=== PATIENT | female | born 1980 | race Caucasian/White ===

== ENCOUNTER 2017-03-30 23:25 | Inpatient (IN) | payer BC ==
[2017-03-31] MEDS ORDERED: TERBUTALINE 1 MG/ML VIAL SQ PRN
[2017-03-31] MEDS ORDERED: LACTATED RINGERS 1,000 ML IV SCH
[2017-03-31] MEDS ORDERED: CARBOPROST TROMETHAMINE 250 MCG/ML 1 ML AMP IM PRN
[2017-03-31] MEDS ORDERED: METHYLERGONOVINE 0.2 MG/ML 1 ML AMP IM PRN
[2017-03-31] MEDS ORDERED: LIDOCAINE 1% (PF) 10 MG/ML (30 ML SDV) SQ PRN
[2017-03-31] MEDS ORDERED: OXYTOCIN 10 UNIT/ML 1 ML VIAL IM PRN
[2017-03-31] MEDS ORDERED: BUTORPHANOL 1 MG/ML 1 ML VIAL IV PRN (00:46)
[2017-03-31 00:51] LABS: Basophils % (A) 0 %; CH 30.3; CHCM 34.2; Eosinophils # (A) 0.2 k/uL (0-0.7); Eosinophils % (A) 1 %; HCT 37.3 % (34.0-46.0); HDW 2.25; HGB 12.7 gm/dL (11.4-16.0); Luc # (Auto) 0.28; Luc % (Auto) 2; Lymphocytes # (A) 2.7 k/uL (1.0-4.8); Lymphocytes % (A) 16 %; MCH 30.2 pg (25.0-35.0); MCHC 34.1 g/dL (31.0-37.0); MCV 88.8 fL (80.0-100.0); Mean Platelet Volume 8.3; Monocytes # (A) 0.9 k/uL (0-1.0); Monocytes % (A) 5 %; Neutrophils # (A) 12.4 k/uL (1.3-7.7); Neutrophils % (A) 75 %; RDW 13.2 % (11.5-15.5); WBC 16.5 k/uL (3.8-10.6); WBC (Perox) 16.35
[2017-03-31] MEDS ORDERED: ONDANSETRON 4 MG/2 ML VIAL IVP STA (02:42)
--- NOTE | 2017-03-31 03:43 | P.HPOB ---
History of Present Illness H&P Date: 03/31/17 Chief Complaint: Spontaneous rupture of membranes This is a 36-year-old female 2 para 1 with an estimated date of confinement of 04/05/2017, estimated gestational age of 39-2/7 weeks who presented with spontaneous rupture membranes at approximately 10:15 PM on 2016. She states the fluid was clear. She began feeling contractions shortly thereafter. care has been with Dr. Do and has been essentially uncomplicated however she has been following with maternal- medicine due to history of delivery with her first child. She did receive progesterone injections weekly and was followed with repetitive ultrasounds. labs: Integrated screen-negative Syphilis antibody-negative Blood type-O+ Antibody screen-negative Rubella-immune Hepatitis B surface antigen-negative Random glucose-69 Hemoglobin-13.1 GC/chlamydia-negative One hour Glucola-normal Group B streptococcus-negative Obstetrical history: . History of 1 vaginal delivery at 33 weeks with labor. Infant weight was 4 lbs. 8 oz. Gynecologic history: History of low-grade with history of LEEP procedure in 2011. 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 Review of Systems Constitutional: Denies chills, Denies fever Ears, nose, mouth and throat: Denies headache, Denies sore throat Cardiovascular: Denies chest pain, Denies shortness of breath Gastrointestinal: Reports abdominal pain (Irregular contractions) Genitourinary: Reports pelvic pain, Reports Musculoskeletal: Denies myalgias Neurological: Denies numbness, Denies weakness Psychiatric: Denies anxiety, Denies depression Past Medical History Past Medical History: Asthma, GERD/Reflux History of Any Multi-Drug Resistant Organisms: None Reported Past Surgical History: Adenoidectomy, Tonsillectomy Additional Past Surgical History / Comment(s): Leep procedure Past Anesthesia/Blood Transfusion Reactions: No Reported Reaction Past Psychological History: No Psychological Hx Reported Smoking Status: Never smoker Past Alcohol Use History: None Reported Past Drug Use History: None Reported - Past Family History Mother Family Medical History: No Reported History Medications and Allergies Home Medications Medication Instructions Recorded Confirmed Type Docusate [Colace] 100 mg PO DAILY 03/30/17 03/30/17 History Famotidine [Pepcid] 20 mg PO HS 03/30/17 03/30/17 History Coi-Cilq-Iupwr Acid 1 cap PO DAILY 03/30/17 03/30/17 History [-U Capsule (formulary)] Allergies Allergy/AdvReac Type Severity Reaction Status Date / Time No Known Allergies Allergy Verified 03/30/17 23:45 Exam Osteopathic Statement: *. No significant issues noted on an osteopathic structural exam other than those noted in the History and Physical/Consult. - Vital Signs Vital signs: Vital Signs Temp Pulse Resp BP Pulse Ox 03/31/17 00:33 96.9 F L 71 18 129/75 100 Intake and Output 03/30/17 03/30/17 03/31/17 14:59 22:59 06:59 Other: Weight 86.183 kg Patient Weight 03/31/17 06:59 Weight 86.183 kg HEENT: Within normal limits Heart: Regular rate and rhythm Lungs: Clear to auscultation bilaterally Abdomen: Amnisure: Positive, grossly ruptured clear fluid Cervix: On admission is 3 cm/90-100%/-2 heart tones: Reactive Contractions: Every 3-5 minutes Extremities: Negative Homans Results Result Diagrams: 03/31/17 00:35 Abnormal Lab Results - Last 24 Hours (Table) 03/31/17 Range/Units 00:35 WBC 16.5 H (3.8-10.6) k/uL Neutrophils # 12.4 H (1.3-7.7) k/uL Assessment and Plan (1) 39 weeks gestation of Status: Acute (2) Spontaneous rupture of membranes Status: Acute Plan: Admission for active labor. Expectant management.
[2017-03-31] MEDS ORDERED: diphenhydrAMINE 25 MG CAP PO PRN (05:19)
[2017-03-31] MEDS ORDERED: diphenhydrAMINE 50 MG CAP PO PRN (05:19)
[2017-03-31] MEDS ORDERED: HYDROCORTISONE 2.5% RECTAL CREAM 30 GM TUBE RECTAL PRN (05:19)
[2017-03-31] MEDS ORDERED: Acetaminophen-Codeine 300-30mg TAB PO PRN ×2 (05:19)
[2017-03-31] MEDS ORDERED: BENZOCAINE SPRAY 57GM TOPICAL PRN (05:19)
[2017-03-31] MEDS ORDERED: LANOLIN CREAM 5 GM TUBE TOPICAL PRN (05:19)
[2017-03-31] MEDS ORDERED: ZOLPIDEM 5 MG TAB PO PRN (05:19)
[2017-03-31] MEDS ORDERED: OXYTOCIN 20 UNITS/1000 ML NS 1,000 ML IV SCH ×2 (05:19)
[2017-03-31] MEDS ORDERED: WITCH HAZEL 1 EACH MED..PAD TOPICAL PRN (05:19)
[2017-03-31] MEDS ORDERED: diphenhydrAMINE 50 MG/ML 1 ML VIAL IVP PRN ×2 (05:19)
[2017-03-31] MEDS ORDERED: SIMETHICONE 80 MG CHEWABLE PO PRN (05:19)
--- NOTE | 2017-03-31 05:23 | P.PROBDLV ---
Vaginal Delivery Note - . Vaginal Delivery Note: The patient progressed to complete dilation after attaining is labor. She did not take anything for pain. Once reaching complete dilation, she began pushing. 's head came to a crown. With one further push, the 's head delivered across the perineum and a left occiput anterior position followed by the anterior shoulder and a nuchal left hand. With one further push , the remainder the easily delivered and was placed on mother's abdomen. Nose and mouth were bulb suctioned. Cord was clamped and cut and infant was taken to warmer for evaluation. A viable male is noted with scores of 8 at 1 minute and 9 at 5 minutes and infant weight of 7 lbs. 6 oz. Placenta delivered shortly thereafter, intact, with a three-vessel cord. Uterus contracted well after oxytocin was given and uterine massage was carried out. Inspection of the perineum revealed a left labial/periurethral laceration. The area was anesthetized with 1% lidocaine and then sutured with 3 -0 Vicryl suture in a running locked fashion. There was a small right periurethral abrasion that was noted to be hemostatic and therefore not sutured. There was also noted to be of small perineal abrasion that was not bleeding. Estimated blood loss is approximately 150 mL. Both mother and infant are in stable condition.
[2017-03-31] MEDS: IBUPROFEN 600 MG TAB PO PRN ×2 (05:43→15:35)
[2017-03-31] MEDS: SENNOSIDES-DOCUSATE SODIUM 1 EACH TAB PO SCH ×2 (10:40→20:00)
[2017-03-31] MEDS: ACETAMINOPHEN TAB 325 MG TAB PO PRN ×2 (10:41→20:00)
[2017-03-31] MEDS: FAMOTIDINE 20 MG TAB PO SCH (21:32)
[2017-03-31 23:53] VITALS: TEMP 98.3
[2017-04-01] MEDS: ACETAMINOPHEN TAB 325 MG TAB PO PRN ×2 (05:03→10:14)
[2017-04-01 05:39] LABS: Basophils # (A) 0.1 k/uL (0-0.2); Basophils % (A) 0 %; CH 30.4; CHCM 33.9; Eosinophils # (A) 0.3 k/uL (0-0.7); Eosinophils % (A) 1 %; HDW 2.22; HGB 11.5 gm/dL (11.4-16.0); Luc # (Auto) 0.34; Luc % (Auto) 2; Lymphocytes # (A) 3.4 k/uL (1.0-4.8); Lymphocytes % (A) 19 %; MCH 30.4 pg (25.0-35.0); MCHC 33.7 g/dL (31.0-37.0); MCV 90.1 fL (80.0-100.0); Mean Platelet Volume 8.2; Monocytes # (A) 0.9 k/uL (0-1.0); Monocytes % (A) 5 %; Neutrophils # (A) 12.7 k/uL (1.3-7.7); Neutrophils % (A) 72 %; RBC 3.77 m/uL (3.80-5.40); RDW 13.4 % (11.5-15.5); WBC 17.7 k/uL (3.8-10.6); WBC (Perox) 18.51
--- NOTE | 2017-04-01 07:22 | P.DS ---
Providers Date of admission: 03/30/17 23:37 Expected date of discharge: 04/01/17 Attending physician: Nicole Do Primary care physician: Nicole Do - Discharge Diagnosis(es) (1) Normal vaginal delivery Current Visit: Yes Status: Acute Hospital Course: Pt presented at term with spontaneous rupture of membranes. She underwent a normal vaginal delivery and had an uncomplicated post course. She denies N/V, F/C, CP, SOB, calf pain. She will be discharged home PPD #1 in stable condition to follow up with me in 6 weeks. Plan - Discharge Summary New Discharge Prescriptions: No Action Nxt-Kzul-Huhla Acid [-U Capsule (formulary)] 1 cap PO DAILY Famotidine [Pepcid] 20 mg PO HS Docusate [Colace] 100 mg PO DAILY Discharge Medication List Docusate [Colace] 100 mg PO DAILY 03/30/17 [History] Famotidine [Pepcid] 20 mg PO HS 03/30/17 [History] Spy-Ukoc-Ndwbw Acid [-U Capsule (formulary)] 1 cap PO DAILY 04/10 [History]
[2017-04-01 08:15] VITALS: BP 126/68; PULSE 79; RESP 14
[2017-04-01] MEDS: SENNOSIDES-DOCUSATE SODIUM 1 EACH TAB PO SCH (09:12)
[2017-04-01] MEDS: FAMOTIDINE 20 MG TAB PO SCH (10:15)
== END 2017-04-01 10:15 | disposition home or self-care (01) | DRG 775 ==
LOC: FBPOP 23:25 → 4FBP 23:37
PROVIDERS: ADMIT Obstetrics & Gynecology; ATTEND Obstetrics & Gynecology
PROC: 10E0XZZ Delivery of Products of Conception, External Approach (ICD-10-PCS; principal; 2017-03-31)
PROC: 0HQ9XZZ Repair Perineum Skin, External Approach (ICD-10-PCS; 2017-03-31)
DX: O99.52 Diseases of the respiratory system complicating childbirth (principal); J45.909 Unspecified asthma, uncomplicated; Z37.0 Single live birth; O99.62 Diseases of the digestive system complicating childbirth; K21.9 Gastro-esophageal reflux disease without esophagitis; O71.82 Other specified trauma to perineum and vulva; Z3A.39 39 weeks gestation of pregnancy
CPT/HCPCS: 85025; 88307

== ENCOUNTER 2018-09-21 06:00 | Inpatient (IN) | payer BC ==
[2018-09-27] MEDS ORDERED: LIDOCAINE 0.5% (PF) 5 MG/ML (50 ML SDV) SQ PRN (06:24)
[2018-09-27] MEDS ORDERED: OXYTOCIN 20 UNITS/1000 ML NS 1,000 ML IV SCH (06:24)
[2018-09-27] MEDS ORDERED: CARBOPROST TROMETHAMINE 250 MCG/ML 1 ML AMP IM PRN (06:24)
[2018-09-27] MEDS ORDERED: OXYTOCIN 10 UNIT/ML 1 ML VIAL IM PRN (06:24)
[2018-09-27] MEDS ORDERED: METHYLERGONOVINE 0.2 MG/ML 1 ML AMP IM PRN (06:24)
[2018-09-27] MEDS ORDERED: AMPICILLIN 2,000 MG in SODIUM CHLORIDE 0.9% 100 ML IVPB STA (06:24)
[2018-09-27] MEDS ORDERED: TERBUTALINE 1 MG/ML VIAL SQ PRN (06:24)
[2018-09-27] MEDS: LACTATED RINGERS 1,000 ML IV SCH ×3 (06:34→14:08)
[2018-09-27 06:58] LABS: Basophils % (A) 0 %; Eosinophils # (A) 0.1 k/uL (0-0.7); Eosinophils % (A) 1 %; HCT 36.3 % (34.0-46.0); HGB 12.5 gm/dL (11.4-16.0); Lymphocytes # (A) 2.5 k/uL (1.0-4.8); Lymphocytes % (A) 20 %; MCH 29.9 pg (25.0-35.0); MCHC 34.4 g/dL (31.0-37.0); MCV 86.9 fL (80.0-100.0); Mean Platelet Volume 7.9; Monocytes # (A) 0.6 k/uL (0-1.0); Monocytes % (A) 5 %; Neutrophils # (A) 8.8 k/uL (1.3-7.7); Neutrophils % (A) 72 %; Platelet Count 262 k/uL (150-450); RBC 4.18 m/uL (3.80-5.40); RDW 13.1 % (11.5-15.5); WBC 12.2 k/uL (3.8-10.6)
[2018-09-27 07:25] VITALS: RESP 16; BMI 33.1
[2018-09-27] MEDS: AMPICILLIN 1,000 MG in SODIUM CHLORIDE 0.9% 50 ML IVPB SCH ×2 (10:44→18:47)
[2018-09-27] MEDS ORDERED: fentaNYL (PF) 50 MCG/ML 5 ML AMP ONE (12:19)
[2018-09-27] MEDS ORDERED: SODIUM CHLORIDE 0.9% 100 ML BAG ONE (12:19)
[2018-09-27] MEDS ORDERED: ROPIVACAINE 5MG/ML 20ML VIAL ONE (12:19)
[2018-09-27] MEDS ORDERED: ROPIVACAINE 100 MG, fentaNYL (PF) 200 MCG in SODIUM CHLORIDE 0.9% 76 ML EPIDURAL ONE (13:43)
[2018-09-27] MEDS ORDERED: HYDROCORTISONE 2.5% RECTAL CREAM 30 GM TUBE RECTAL PRN (19:09)
[2018-09-27] MEDS ORDERED: ZOLPIDEM 5 MG TAB PO PRN (19:09)
[2018-09-27] MEDS ORDERED: ACETAMINOPHEN TAB 325 MG TAB PO PRN (19:09)
[2018-09-27] MEDS ORDERED: BENZOCAINE/MENTHOL SPRAY 1 GM/SPRAY AEROSOL TOPICAL PRN (19:09)
[2018-09-27] MEDS ORDERED: LANOLIN CREAM 5 GM TUBE TOPICAL PRN (19:09)
[2018-09-27] MEDS ORDERED: SIMETHICONE 80 MG CHEWABLE PO PRN (19:09)
[2018-09-27] MEDS ORDERED: WITCH HAZEL 1 EACH MED..PAD TOPICAL PRN (19:09)
[2018-09-27] MEDS ORDERED: diphenhydrAMINE 50 MG CAP PO PRN (19:09)
[2018-09-27] MEDS ORDERED: diphenhydrAMINE 25 MG CAP PO PRN (19:09)
[2018-09-27] MEDS ORDERED: diphenhydrAMINE 50 MG/ML 1 ML VIAL IVP PRN ×2 (19:09)
[2018-09-27] MEDS: IBUPROFEN 600 MG TAB PO PRN (19:22)
[2018-09-27] MEDS ORDERED: SENNOSIDES-DOCUSATE SODIUM 1 EACH TAB PO SCH (20:00)
[2018-09-28] MEDS: IBUPROFEN 600 MG TAB PO PRN ×2 (01:43→08:58)
--- NOTE | 2018-09-28 08:15 | P.HPOB ---
History of Present Illness H&P Date: 09/27/18 Chief Complaint: Induction of labor 37-year-old presents at 39 weeks and 4 days for induction of labor. Her cervix is 3 cm dilated, 70% effaced, and -2 station. She is mary irregularly. heart tones 135-140 with moderate variability and reactive. Review of Systems All systems: negative Constitutional: Denies chills, Denies fever Eyes: denies blurred vision, denies pain Ears, nose, mouth and throat: Denies headache, Denies sore throat Cardiovascular: Denies chest pain, Denies shortness of breath Respiratory: Denies cough Gastrointestinal: Denies abdominal pain, Denies diarrhea, Denies nausea, Denies vomiting Genitourinary: Denies dysuria, Denies hematuria Musculoskeletal: Denies myalgias Integumentary: Denies pruritus, Denies rash Neurological: Denies numbness, Denies weakness Psychiatric: Denies anxiety, Denies depression Endocrine: Denies fatigue, Denies weight change Past Medical History Past Medical History: Asthma, GERD/Reflux Additional Past Medical History / Comment(s): Obstetric history: She has had 2 previous vaginal deliveries, the first was , the second she had progesterone injections throughout the . First she had progesterone injections starting at 16 weeks through 36 weeks. Her blood type is O+, antibodies negative, rubella immune, RPR nonreactive, hepatitis B negative, GBS positive. Normal maternity 21 test, female. History of Any Multi-Drug Resistant Organisms: None Reported Past Surgical History: Adenoidectomy, Tonsillectomy Additional Past Surgical History / Comment(s): Leep procedure Past Anesthesia/Blood Transfusion Reactions: No Reported Reaction Past Psychological History: No Psychological Hx Reported Smoking Status: Never smoker Past Alcohol Use History: None Reported Past Drug Use History: None Reported - Past Family History Mother Family Medical History: Congestive Heart Failure (CHF), Diabetes Mellitus Medications and Allergies Home Medications Medication Instructions Recorded Confirmed Type Aspirin EC [Ecotrin Low Dose] 81 mg PO DAILY 01/21/17 09/27/18 History Pnv,Calcium 72/Iron/Folic Acid 09/27/18 History [ Plus Tablet] Allergies Allergy/AdvReac Type Severity Reaction Status Date / Time No Known Allergies Allergy Verified 09/27/18 06:21 Exam Osteopathic Statement: *. No significant issues noted on an osteopathic structural exam other than those noted in the History and Physical/Consult. Vital Signs Temp Pulse Resp BP Pulse Ox 09/28/18 00:00 71 16 129/88 09/27/18 20:00 97.7 F 75 16 118/63 09/27/18 16:00 97.6 F 79 16 116/65 97 09/27/18 15:30 97.8 F 73 16 124/60 09/27/18 14:56 97.5 F L 75 16 126/75 09/27/18 14:45 74 16 117/62 09/27/18 14:30 97.6 F 68 16 121/64 09/27/18 14:15 97.5 F L 75 16 119/59 09/27/18 14:00 97.7 F 86 16 118/60 Intake and Output 09/27/18 09/28/18 09/28/18 22:59 06:59 14:59 Intake Total 1000 Balance 1000 Intake: Intake, IV Titration 1000 Amount Oxytocin 20 Units/1000 ml 1000 Ns 1,000 ml @ 1 MILLIUNIT/MIN 3 mls/hr IV .Q24H MISTI Rx#:[id number] Other: Voiding Method Toilet # Voids 1 1 Heart: Regular rate and rhythm Lungs: Clear to auscultation bilaterally Abdomen: Soft, nontender Extremities: Negative Homans sign Results Result Diagrams: 09/27/18 06:30 Assessment and Plan (1) Normal labor Current Visit: Yes Status: Acute Code(s): O80 - ENCOUNTER FOR FULL-TERM UNCOMPLICATED DELIVERY; Z37.9 - OUTCOME OF DELIVERY, UNSPECIFIED SNOMED Code(s ): 55700781 Plan: 1. Induction of labor with amniotomy and Pitocin 2. Anticipate normal vaginal delivery
--- NOTE | 2018-09-28 08:17 | P.PROBDLV ---
Vaginal Delivery Note - . Vaginal Delivery Note: 37-year-old presents at 39 weeks and 4 days for induction of labor. Her cervix is 3 cm dilated, 70% effaced, and -2 station. She is mary irregularly. heart tones 135-140 with moderate variability and reactive. Amniotomy was performed at 8:14 AM, clear fluid noted. Pitocin had also been started. When she was uncomfortable she did get an epidural for pain management. Her cervix was completely dilated at 1330. She pushed, delivered a viable female over intact perineum under epidural anesthesia at 1345. Head delivered OA, anterior shoulder delivered gentle downward guidance followed by posterior shoulder and rest of body. Nose and mouth bulb suctioned , cord clamped and cut, placed mother's abdomen. Apgars 9, 9, weight 6 lbs. 12 oz. Placenta delivered spontaneously, intact with three-vessel cord at 1348. Vagina, cervix, and perineum were inspected. First-degree midline laceration was repaired with 3-0 Vicryl. Estimated blood loss 100 mL. Mother and baby in stable condition.
--- NOTE | 2018-09-28 08:20 | P.DS ---
Providers Date of admission: 09/27/18 06:10 Expected date of discharge: 09/28/18 Attending physician: Nicole Do Primary care physician: Sarai Gasca - Discharge Diagnosis(es) (1) Normal labor Current Visit: Yes Status: Resolved (2) Normal vaginal delivery Current Visit: No Status: Acute Hospital Course: Patient presented for induction of labor. She underwent a normal vaginal delivery. Her post course was uncomplicated. She'll be discharged home day #1 in stable condition to follow-up with me in 6 weeks. Plan - Discharge Summary New Discharge Prescriptions: New Ibuprofen [Motrin] 600 mg PO Q6HR PRN #30 tab PRN Reason: Mild Pain Or Fever >= 100.5 Discontinued Aspirin EC [Ecotrin Low Dose] 81 mg PO DAILY No Action Pnv,Calcium 72/Iron/Folic Acid [ Plus Tablet] Discharge Medication List Pnv,Calcium 72/Iron/Folic Acid [ Plus Tablet] 09/27/18 [History] Ibuprofen [Motrin] 600 mg PO Q6HR PRN #30 tab 09/28/18 [Rx] Follow up Appointment(s)/Referral(s): Nicole Do DO [Doctor of Osteopathic Medicine] - 6 Weeks Discharge Disposition: HOME SELF-CARE
[2018-09-28 10:26] VITALS: BP 120/67; PULSE 68; TEMP 97.8
== END 2018-09-28 15:30 | disposition home or self-care (01) | DRG 807 ==
LOC: 4FBP 09-27 06:10
PROVIDERS: ADMIT Obstetrics & Gynecology; ATTEND Obstetrics & Gynecology
PROC: 10E0XZZ Delivery of Products of Conception, External Approach (ICD-10-PCS; principal; 2018-09-27)
PROC: 0HQ9XZZ Repair Perineum Skin, External Approach (ICD-10-PCS; 2018-09-27)
PROC: 10907ZC Drainage of Amniotic Fluid, Therapeutic from Products of Conception, Via Natural or Artificial Opening (ICD-10-PCS; 2018-09-27)
PROC: 3E033VJ Introduction of Other Hormone into Peripheral Vein, Percutaneous Approach (ICD-10-PCS; 2018-09-27)
PROC: 00HU33Z Insertion of Infusion Device into Spinal Canal, Percutaneous Approach (ICD-10-PCS; 2018-09-27)
PROC: 3E0R3BZ Introduction of Anesthetic Agent into Spinal Canal, Percutaneous Approach (ICD-10-PCS; 2018-09-27)
DX: O99.62 Diseases of the digestive system complicating childbirth (principal); Z37.0 Single live birth; O99.824 Streptococcus B carrier state complicating childbirth; O99.52 Diseases of the respiratory system complicating childbirth; O70.0 First degree perineal laceration during delivery; K21.9 Gastro-esophageal reflux disease without esophagitis; J45.909 Unspecified asthma, uncomplicated; Z3A.39 39 weeks gestation of pregnancy; Z82.49 Family history of ischemic heart disease and other diseases of the circulatory system; Z83.3 Family history of diabetes mellitus; Z79.82 Long term (current) use of aspirin
CPT/HCPCS: 85025; 86850; 86900; 86901

== ENCOUNTER 2018-11-10 08:19 | Day surgery (SDC) | payer BC ==
--- NOTE | 2018-11-10 05:37 | P.HPOB ---
History of Present Illness H&P Date: 11/10/18 Chief Complaint: FAmily planning 37 year old presents for laparoscopic tubal ligation. Review of Systems All systems: negative Constitutional: Denies chills, Denies fever Eyes: denies blurred vision, denies pain Ears, nose, mouth and throat: Denies headache, Denies sore throat Cardiovascular: Denies chest pain, Denies shortness of breath Respiratory: Denies cough Gastrointestinal: Denies abdominal pain, Denies diarrhea, Denies nausea, Denies vomiting Genitourinary: Denies dysuria, Denies hematuria Musculoskeletal: Denies myalgias Integumentary: Denies pruritus, Denies rash Neurological: Denies numbness, Denies weakness Psychiatric: Denies anxiety, Denies depression Endocrine: Denies fatigue, Denies weight change Past Medical History Past Medical History: Asthma, GERD/Reflux Additional Past Medical History / Comment(s): Obstetric history: She has had 3 vaginal deliveries History of Any Multi-Drug Resistant Organisms: None Reported Past Surgical History: Adenoidectomy, Tonsillectomy Additional Past Surgical History / Comment(s): Leep procedure Past Anesthesia/Blood Transfusion Reactions: No Reported Reaction Past Psychological History: No Psychological Hx Reported Smoking Status: Never smoker Past Alcohol Use History: None Reported Past Drug Use History: None Reported - Past Family History Mother Family Medical History: Congestive Heart Failure (CHF), Diabetes Mellitus Medications and Allergies Home Medications Medication Instructions Recorded Confirmed Type Pnv,Calcium 72/Iron/Folic Acid 1 tab PO DAILY 09/27/18 11/08/18 History [ Plus Tablet] Ibuprofen [Motrin] 600 mg PO Q6HR PRN #30 tab 09/28/18 11/08/18 Rx Albuterol Inhaler [Ventolin Hfa 1 puff INHALATION DIRECTED PRN 11/08/1811/08 History Inhaler] Allergies Allergy/AdvReac Type Severity Reaction Status Date / Time No Known Allergies Allergy Verified 11/08/18 16:06 Exam Osteopathic Statement: *. No significant issues noted on an osteopathic structural exam other than those noted in the History and Physical/Consult. HEart: RRR Lungs: CTAB Abdomen: soft, nontender Extremeties: neg latoya's Assessment and Plan (1) Family planning Status: Acute Code(s): Z30.09 - ENCOUNTER FOR OTH GENERAL CNSL AND ADVICE ON CONTRACEPTION SNOMED Code(s): 478067211 Plan: 1. laparoscopic tubal ligation
[~2018-11-10 08:19] MED LIST: DEXAMETHASONE SOD PHOSPHATE 10 MG/ML 1 ML VIAL IV ONE; HYDROmorphone 0.5 MG/0.5 ML SYRINGE IVP PRN; LACTATED RINGERS 1,000 ML IV SCH; LIDOCAINE 1% 20 ML VIAL (10MG/ML) FOR IV START INTRADERMA PRN; MIDAZOLAM (PF) 2 MG/2 ML VIAL IV PRN; ONDANSETRON 4 MG/2 ML VIAL IVP ONE; Pre Op ABX Message 1 EACH MISC MISCELLANE ONE; SCOPOLAMINE 1.5MG/72HR PATCH TRANSDERM ONE
[2018-11-10] MEDS ORDERED: SUCCINYLCHOLINE CHLORIDE 100 MG/5 ML SYR IV ONE (08:55)
[2018-11-10] MEDS ORDERED: fentaNYL (PF) 50 MCG/ML 2 ML AMP ONE (08:55)
[2018-11-10] MEDS ORDERED: MIDAZOLAM 2 MG/2 ML VIAL ONE (08:55)
[2018-11-10] MEDS ORDERED: KETOROLAC 30 MG/ML 1 ML VIAL ONE (08:55)
[2018-11-10] MEDS ORDERED: NEOSTIGMINE 1 MG/ML 10 ML VIAL ONE (08:55)
[2018-11-10] MEDS ORDERED: LIDOCAINE 1% INJ 10MG/ML (20 ML MDV) ONE (08:55)
[2018-11-10] MEDS ORDERED: GLYCOPYRROLATE 0.2 MG/ML 2 ML VIAL ONE (08:55)
[2018-11-10] MEDS ORDERED: PROPOFOL 10 MG/ML 20 ML VIAL IV ONE (08:55)
[2018-11-10] MEDS ORDERED: ROCURONIUM BROMIDE 10 MG/ML 10 ML VIAL IV ONE (08:55)
[2018-11-10] MEDS ORDERED: BUPIVACAINE (PF) 0.25% 30 ML VIAL SQ ONE ×2 (09:16)
--- NOTE | 2018-11-10 09:33 | P.OP ---
Date of Procedure: 11/10/18 Preoperative Diagnosis: 1. family planning Postoperative Diagnosis: 1. family planning Procedure(s) Performed: laparoscopic tubal ligation Anesthesia: PJ Surgeon: Nicole Do Estimated Blood Loss (ml): 2 IV fluids (ml): 400 Urine output (ml): 50 Pathology: none sent Condition: stable Disposition: PACU Operative Findings: normal uterus, tubes and ovaries. small amount of bowel adhesions on the left. Description of Procedure: Patient was taken to the operating room where general anesthesia was obtained without difficulty. She was prepped and draped in normal sterile fashion in the dorsal lithotomy position, legs placed in the Kishan stirrups. Bladder drained of all urine. [place] speculum placed in the vagina and the anterior lip the cervix was grasped with single-tooth tenaculum. The uterus is sounded to 7 cm and the kroner manipulator was placed. Attention was then turned to the abdomen and gloves were changed. A 10 mm infraumbilical incision was made the scalpel and 10 mm optical trocar was placed under direct visualization. A 5 mm suprapubic Incision was made and a 5 mm optical trocar was placed under direct visualization. Survey of the pelvis revealed normal uterus tubes and ovaries. The left fallopian tube was grasped with a Kleppinger and fulgurated 2 -3 cm on this side in the ampullar portion. The right fallopian tube was grasped with a Kleppinger and fulgurated 2-3 cm in the ampullar portion. All instruments were then removed from the abdomen and vagina. The 10 mm infraumbilical incision was closed with 0 Vicryl and the fascial layer and then 4-0 Vicryl in a subcuticular fashion. The 5 mm incision was closed with 4-0 Vicryl in a subcuticular fashion. Patient tolerated procedure well, sponge and instrument counts correct 2 and she was taken to recovery room in stable condition.
[2018-11-10 09:51] VITALS: TEMP 97.1
[2018-11-10] MEDS ORDERED: LACTATED RINGERS 1,000 ML IV ONE (10:26)
[2018-11-10 11:07] VITALS: BP 125/70; PULSE 78; RESP 18
== END 2018-11-10 11:27 | disposition home or self-care (01) ==
LOC: OR 08:19
PROVIDERS: ATTEND Obstetrics & Gynecology
DX: Z30.2 Encounter for sterilization (principal); J45.990 Exercise induced bronchospasm; K21.9 Gastro-esophageal reflux disease without esophagitis; Z98.890 Other specified postprocedural states; Z79.899 Other long term (current) drug therapy
CPT/HCPCS: 81025; 58670; J2250; J1100; J2710; J2405; J2001; J3010; J1885; J0330; J2704

== ENCOUNTER → 2021-03-03 | Outpatient (CLI) | payer OTHER ==
[2021-03-03 10:37] LABS: Basophils # (A) 0.1 k/uL (0-0.2); Basophils % (A) 0 %; Eosinophils # (A) 0.1 k/uL (0-0.7); Eosinophils % (A) 1 %; HCT 40.6 % (34.0-46.0); Lymphocytes # (A) 2.3 k/uL (1.0-4.8); Lymphocytes % (A) 20 %; MCH 30.8 pg (25.0-35.0); MCHC 34.4 g/dL (31.0-37.0); MCV 89.8 fL (80.0-100.0); Mean Platelet Volume 7.4; Monocytes # (A) 0.7 k/uL (0-1.0); Monocytes % (A) 6 %; Neutrophils # (A) 8.4 k/uL (1.3-7.7); Neutrophils % (A) 72 %; Platelet Count 285 k/uL (150-450); RBC 4.52 m/uL (3.80-5.40); RDW 12.3 % (11.5-15.5); WBC 11.7 k/uL (3.8-10.6)
== END | disposition home or self-care (01) ==
LOC: LABWHC1 09:38
PROVIDERS: ATTEND Obstetrics & Gynecology
DX: Z01.812 Encounter for preprocedural laboratory examination (principal)
CPT/HCPCS: 36415; 85025

== ENCOUNTER 2021-03-10 06:42 | Day surgery (SDC) | payer BC, OTHER ==
[2021-03-05 16:13] VITALS: BMI 30.1
[~2021-03-10 06:42] MED LIST changes: -DEXAMETHASONE SOD PHOSPHATE 10 MG/ML 1 ML VIAL IV ONE; +DEXAMETHASONE SOD PHOSPHATE 4 MG/ML 1 ML VIAL IV ONE; -HYDROmorphone 0.5 MG/0.5 ML SYRINGE IVP PRN; -LIDOCAINE 1% 20 ML VIAL (10MG/ML) FOR IV START INTRADERMA PRN; -MIDAZOLAM (PF) 2 MG/2 ML VIAL IV PRN; +MIDAZOLAM 2 MG/2 ML VIAL IV PRN
[2021-03-10] MEDS ORDERED: HYDROmorphone 0.5 MG/0.5 ML SYRINGE IVP PRN (07:00)
--- NOTE | 2021-03-10 07:32 | P.HPOB ---
History of Present Illness H&P Date: 03/10/21 Chief Complaint: labial injury during last delivery 40 year old presents for labiaplasty. She had a tear in the labia with the last delivery that resulted in the left labia sticking out significantly. It gets in the way when she has intercourse or uses the bathroom. Review of Systems All systems: negative Constitutional: Denies chills, Denies fever Eyes: denies blurred vision, denies pain Ears, nose, mouth and throat: Denies headache, Denies sore throat Cardiovascular: Denies chest pain, Denies shortness of breath Respiratory: Denies cough Gastrointestinal: Denies abdominal pain, Denies diarrhea, Denies nausea, Denies vomiting Genitourinary: Denies dysuria, Denies hematuria Musculoskeletal: Denies myalgias Integumentary: Denies pruritus, Denies rash Neurological: Denies numbness, Denies weakness Psychiatric: Denies anxiety, Denies depression Endocrine: Denies fatigue, Denies weight change Past Medical History Past Medical History: Asthma, GERD/Reflux, Osteoarthritis (OA) Additional Past Medical History / Comment(s): Obstetric history: She has had 3 vaginal deliveries History of Any Multi-Drug Resistant Organisms: None Reported Past Surgical History: Adenoidectomy, Tonsillectomy, Tubal Ligation Additional Past Surgical History / Comment(s): Leep procedure Past Anesthesia/Blood Transfusion Reactions: No Reported Reaction Past Psychological History: No Psychological Hx Reported Smoking Status: Never smoker Past Alcohol Use History: Occasional Past Drug Use History: None Reported - Past Family History Mother Family Medical History: No Reported History Medications and Allergies Home Medications Medication Instructions Recorded Confirmed Type Albuterol Inhaler (Mhu) [Ventolin 1 puff INHALATION QID 11/08/18 03/05/21 History Hfa Inhaler (Mhu)] Meloxicam [Mobic] 7.5 mg PO DAILY 03/05/21 03/05/21 History [place]-3 Fatty Acids/Fish Oil [Fish 1 each PO DAILY 03/05/21 03/05/21 History Oil 1,000 mg Softgel] Allergies Allergy/AdvReac Type Severity Reaction Status Date / Time No Known Allergies Allergy Verified 03/05/21 15:46 Exam Osteopathic Statement: *. No significant issues noted on an osteopathic structural exam other than those noted in the History and Physical/Consult. Vital Signs Temp Pulse Resp BP Pulse Ox 03/10/21 07:14 98 F 65 20 115/60 97 Intake and Output 03/09/21 03/10/21 03/10/21 22:59 06:59 14:59 Other: Weight 76.3 kg HEart: RRR Lungs: CTAB Abdomen: soft, nontender Extremeties: neg latoya's Assessment and Plan (1) Injury of vagina Current Visit: Yes Status: Acute Code(s): S39.93XA - UNSPECIFIED INJURY OF PELVIS, INITIAL ENCOUNTER SNOMED Code(s): 304045601 Plan: 1. labiaplasty
[2021-03-10] MEDS ORDERED: fentaNYL (PF) 50 MCG/ML 2 ML AMP ONE (08:05)
[2021-03-10] MEDS ORDERED: MIDAZOLAM 2 MG/2 ML VIAL ONE (08:05)
[2021-03-10] MEDS ORDERED: PROPOFOL 10 MG/ML 20 ML VIAL IV ONE (08:05)
[2021-03-10] MEDS ORDERED: KETOROLAC 15 MG/ML 1 ML VIAL ONE (08:05)
[2021-03-10] MEDS ORDERED: BUPIVACAINE-EPI 0.5%-1:200,000 10 ML VIAL SQ ONE ×2 (08:22)
--- NOTE | 2021-03-10 08:45 | P.OP ---
Date of Procedure: 03/10/21 Preoperative Diagnosis: 1. labial injury Postoperative Diagnosis: 1. labial injury Procedure(s) Performed: labialplasty Anesthesia: [facility] Surgeon: Nicole Do Estimated Blood Loss (ml): 2 IV fluids (ml): 500 Pathology: other (labia) Condition: stable Disposition: PACU Description of Procedure: PAtient was taken to the operating room where general anesthesia was obtained without difficulty. She was prepped and draped in the normal sterile fashion in the dorsal lithotomy position, legs placed in candycane stirrups. The left labia was marked with the marker were ablated make my incision and then it was infiltrated with lidocaine and epinephrine. A triangular incision was made on the left labia to remove the excess tissue. Deep stitches were placed to bring the edges of the labia together. Subcuticular stitch was then placed to close the skin with 3-0 Vicryl. Hemostasis was achieved. Patient procedure well, sponge and instrument counts correct 2. She was taken to recovery in stable condition.
[2021-03-10 08:53] VITALS: TEMP 97
[2021-03-10 09:00] VITALS: RESP 16
[2021-03-10 10:03] VITALS: BP 115/76; PULSE 67
== END 2021-03-10 10:31 | disposition home or self-care (01) ==
LOC: OR 06:42
PROVIDERS: ATTEND Obstetrics & Gynecology
DX: S39.848A Other specified injuries of external genitals, initial encounter (principal); J45.909 Unspecified asthma, uncomplicated; K21.9 Gastro-esophageal reflux disease without esophagitis; M19.90 Unspecified osteoarthritis, unspecified site; Z90.89 Acquired absence of other organs; Z98.51 Tubal ligation status; Z98.890 Other specified postprocedural states; Z79.899 Other long term (current) drug therapy
CPT/HCPCS: 81025; 88305; 56620; J2250; J1100; J2405; J3010; J1885; J2704

== ENCOUNTER → 2023-12-14 | Outpatient (CLI) | payer OTHER ==
--- NOTE | 2023-12-14 23:16 | MR ---
EXAMINATION TYPE: MR brain wo/w con DATE OF EXAM: 12/14/2023 COMPARISON: NONE HISTORY: Memory and speech issues, Dizziness x1 year. Phonologic disorder. TECHNIQUE: Multiplanar, multisequence images of the brain and brainstem is performed without and with IV contras t, utilizing 7 mL intravenous Gadavist . FINDINGS: Diffusion weighted images demonstrate no evidence of a recent infarct or other diffusion ab normality. There is no extra-axial fluid collection or significant white matter signal abnormality. The ventricular system and cisternal spaces are normal in size and appearance. The brain volume is age appropriate. Midline structures demonstrate normal morphology. The craniocervical junction appears within normal limits. Post contrast images demonstrate no abnormal enhancement. The dural venous sinuses appear pa tent. The visualized sinuses are clear and the globes are intact. IMPRESSION: Unremarkable study.
--- NOTE | 2023-12-16 20:46 | MM ---
Reason for Exam: Screening (asymptomatic). Last mammogram was performed 3 year(s) and 2 month(s) ago. Patient History: Menarche at age 12. First Full-Term at age 14. Premenopausal. Hormonal Contraceptives, from age 15 until age 29. Risk Values: Jacy 5 year model risk: 0.5%. NCI Lifetime model risk: 7.1%. Prior Study Comparison: 09/30/2020 Bilateral Screening Mammogram, [facility]. Tissue Density: The breast tissue is heterogeneously dense. This may lower the sensitivity of mammography. Findings: Analyzed By CAD. Superior asymmetric density right MLO view posterior depth and also located centrally at a posterior depth. These areas may represent superimposition shadow but further evaluation is recommended. Otherwise, no significant change. Overall Assessment: Incomplete: need additional imaging evaluation, BI-RAD 0 Management: Special View Mammogram of the right breast. Diagnostic Breast Ultrasound of the right breast. Additional views right breast to include spot 3-D MLO (2 sites) and 3-D lateral views. Targeted right breast ultrasound if any persisting abnormality. [facility] will attempt to contact patient to return for supplemental views and ultrasound if indicated. Electronically signed and approved by: Elmer Tse M.D. Radiologist
== END | disposition home or self-care (01) ==
LOC: RADMRIMAIN 14:35
PROVIDERS: ATTEND Family Medicine
DX: Z12.31 Encounter for screening mammogram for malignant neoplasm of breast (principal); F80.0 Phonological disorder; R42 Dizziness and giddiness; R41.3 Other amnesia
CPT/HCPCS: 77067; 70553; A9585

== ENCOUNTER → 2025-04-10 | Outpatient (CLI) | payer OTHER ==
--- NOTE | 2025-04-10 13:27 | MM ---
Reason for Exam: Screening (asymptomatic). Last mammogram was performed 1 year(s) and 4 month(s) ago. Patient History: Menarche at age 12. First Full-Term at age 14. Premenopausal. Hormonal Contraceptives, from age 15 until age 29. Risk Values: Jacy 5 year model risk: 0.6%. NCI Lifetime model risk: 7.0%. Prior Study Comparison: 09/30/2020 Bilateral Screening Mammogram, [facility]. 12/14/2023 Bilateral MG screening mammo w CAD, [facility]. 12/27/2023 Right MG 3D work up w/cad RT, [facility]. Tissue Density: The breasts are heterogeneously dense, which may obscure small masses. Findings: Analyzed By CAD. There is no suspicious group of microcalcifications or new suspicious mass in either breast. Overall Assessment: Negative, BI-RAD 1 Management: Screening Mammogram of both breasts in 1 year. Patient should continue monthly self-breast exams. A clinical breast exam by your physician is recommended on an annual basis. This exam should not preclude additional follow-up of suspicious palpable abnormalities. Note on Jacy scores and lifetime risk: 1. A Jacy score greater than 3% is considered moderate risk. If this is the case, consider specialist referral to assess eligibility for a risk reducing agent. 2. If overall lifetime risk for the development of breast cancer is 20% or higher, the patient may qualify for future screening with alternating mammogram and breast MRI. [facility], , 04/10/2025 1:24 PM. Electronically signed and approved by: Elmer Tse M.D. Radiologist
== END | disposition home or self-care (01) ==
LOC: RADMAMWWP 11:08
PROVIDERS: ATTEND Obstetrics & Gynecology
DX: Z12.31 Encounter for screening mammogram for malignant neoplasm of breast (principal); R92.333 Mammographic heterogeneous density, bilateral breasts; Z92.0 Personal history of contraception
CPT/HCPCS: 77063; 77067